=== PATIENT | female | born 1940 | race Caucasian/White ===

== ENCOUNTER 2019-11-27 01:38 | Inpatient (IN) ==
[2019-11-27] MEDS ORDERED: Naloxone 0.4 MG/ML INJ IVP PRN (03:17)
[2019-11-27] MEDS ORDERED: Ondansetron ODT 4 MG TAB.RAPDIS SL PRN (03:17)
[2019-11-27] MEDS ORDERED: DilTIAZem 50 MG in 0.9 % Sodium Chloride 40 ML IVC SCH (03:30)
[2019-11-27] MEDS ORDERED: Furosemide 40 MG/4 ML VIAL IVP ONE (04:31)
[2019-11-27 04:42] LABS: Hematocrit 36.3 % (35.3-44.9); Hemoglobin 11.4 g/dL (11.5-15.4); Mean Corpuscular HGB Conc 31.4 g/dL (31.6-35.5); Mean Corpuscular Hemoglobin 30.9 pg (28.0-33.3); Mean Corpuscular Volume 98.4 fL (83.0-100.0); Mean Platelet Volume 10.4 fL (9.4-12.4); Platelet Count 212 K/mcL (140-400); Red Blood Count 3.69 M/mcL (3.82-4.97); Red Cell Distribution Width 13.8 % (11.5-14.5); White Blood Count 8.2 K/mcL (4.3-11.1)
[2019-11-27 05:09] LABS: Calcium 9.5 mg/dL (8.6-10.3); Potassium 3.7 mEq/L (3.5-5.1)
[2019-11-27 05:39] LABS: Thyroid Stimulating Hormone 1.114 mcIU/mL (0.340-5.600)
[2019-11-27] MEDS ORDERED: Apixaban 5 MG TABLET PO SCH (11:30)
[2019-11-27] MEDS: Carbidopa/Levodopa 25/100 TABLET PO SCH ×3 (12:58→20:36)
[2019-11-27] MEDS: Apixaban 5 MG TABLET PO SCH ×2 (12:58→20:37)
[2019-11-27] MEDS: Acetaminophen 325 MG TABLET PO PRN ×2 (12:59→20:45)
[2019-11-27] MEDS ORDERED: NON-FORMULARY MEDICATION 1 EACH EACH (Acetaminophen [Tylenol Arthritis] 650 MG) PO SCH (15:00)
[2019-11-27] MEDS ORDERED: Furosemide 40 MG/4 ML VIAL IVP SCH (21:00)
[2019-11-28 03:56] LABS: Hematocrit 34.2 % (35.3-44.9); Hemoglobin 10.7 g/dL (11.5-15.4); Mean Corpuscular HGB Conc 31.3 g/dL (31.6-35.5); Mean Corpuscular Volume 95.8 fL (83.0-100.0); Mean Platelet Volume 10.8 fL (9.4-12.4); Platelet Count 204 K/mcL (140-400); Red Blood Count 3.57 M/mcL (3.82-4.97); Red Cell Distribution Width 13.9 % (11.5-14.5); White Blood Count 6.6 K/mcL (4.3-11.1)
[2019-11-28 04:42] LABS: Potassium 3.6 mEq/L (3.5-5.1)
[2019-11-28] MEDS ORDERED: Potassium Chloride Elixir 20 MEQ/15 ML UDC PO ONE (07:35)
[2019-11-28] MEDS: Apixaban 5 MG TABLET PO SCH ×2 (08:08→19:55)
[2019-11-28] MEDS: Carbidopa/Levodopa 25/100 TABLET PO SCH ×3 (08:08→19:55)
[2019-11-28] MEDS ORDERED: Furosemide 40 MG TABLET PO SCH (09:00)
[2019-11-29 01:49] LABS: Hematocrit 35.8 % (35.3-44.9); Mean Corpuscular HGB Conc 30.7 g/dL (31.6-35.5); Mean Corpuscular Hemoglobin 30.1 pg (28.0-33.3); Mean Corpuscular Volume 97.8 fL (83.0-100.0); Mean Platelet Volume 10.9 fL (9.4-12.4); Platelet Count 236 K/mcL (140-400); Red Blood Count 3.66 M/mcL (3.82-4.97); Red Cell Distribution Width 13.7 % (11.5-14.5); White Blood Count 7.6 K/mcL (4.3-11.1)
[2019-11-29 02:18] LABS: Calcium 9.1 mg/dL (8.6-10.3); Potassium 3.8 mEq/L (3.5-5.1)
[2019-11-29] MEDS: Carbidopa/Levodopa 25/100 TABLET PO SCH ×3 (10:05→20:36)
[2019-11-29] MEDS: Apixaban 5 MG TABLET PO SCH ×2 (10:05→20:36)
[2019-11-29] MEDS: Furosemide 40 MG TABLET PO SCH (10:05)
[2019-11-29] MEDS: Acetaminophen 325 MG TABLET PO PRN (10:26)
[2019-11-29] MEDS: DilTIAZem CD (24hr) 120 MG CAP.ER.24H PO SCH (11:20)
[2019-11-30] MEDS: Acetaminophen 325 MG TABLET PO PRN ×2 (00:42→11:36)
[2019-11-30 02:07] LABS: Hematocrit 36.7 % (35.3-44.9); Hemoglobin 11.6 g/dL (11.5-15.4); Mean Corpuscular HGB Conc 31.6 g/dL (31.6-35.5); Mean Corpuscular Hemoglobin 30.7 pg (28.0-33.3); Mean Corpuscular Volume 97.1 fL (83.0-100.0); Mean Platelet Volume 10.8 fL (9.4-12.4); Platelet Count 241 K/mcL (140-400); Red Blood Count 3.78 M/mcL (3.82-4.97); Red Cell Distribution Width 13.7 % (11.5-14.5); White Blood Count 7.6 K/mcL (4.3-11.1)
[2019-11-30 02:21] LABS: Calcium 9.1 mg/dL (8.6-10.3); Potassium 4.1 mEq/L (3.5-5.1)
[2019-11-30] MEDS ORDERED: Regadenoson 0.4 MG/5 ML SYRINGE IVP ONE (06:29)
[2019-11-30] MEDS: Carbidopa/Levodopa 25/100 TABLET PO SCH ×3 (11:37→21:24)
[2019-11-30] MEDS: DilTIAZem CD (24hr) 120 MG CAP.ER.24H PO SCH (11:37)
[2019-11-30] MEDS: Apixaban 5 MG TABLET PO SCH ×2 (11:37→21:24)
[2019-11-30] MEDS: Furosemide 40 MG TABLET PO SCH (12:23)
[2019-12-01] MEDS: Acetaminophen 325 MG TABLET PO PRN ×2 (05:48→20:59)
[2019-12-01 07:12] LABS: Hematocrit 36.4 % (35.3-44.9); Hemoglobin 11.3 g/dL (11.5-15.4); Mean Corpuscular Hemoglobin 30.6 pg (28.0-33.3); Mean Corpuscular Volume 98.6 fL (83.0-100.0); Mean Platelet Volume 10.8 fL (9.4-12.4); Platelet Count 243 K/mcL (140-400); Red Blood Count 3.69 M/mcL (3.82-4.97); Red Cell Distribution Width 13.6 % (11.5-14.5); White Blood Count 8.3 K/mcL (4.3-11.1)
[2019-12-01 07:31] LABS: Calcium 9.4 mg/dL (8.6-10.3); Potassium 4.1 mEq/L (3.5-5.1)
[2019-12-01] MEDS: DilTIAZem CD (24hr) 120 MG CAP.ER.24H PO SCH (08:55)
[2019-12-01] MEDS: Apixaban 5 MG TABLET PO SCH ×2 (08:55→20:52)
[2019-12-01] MEDS: Carbidopa/Levodopa 25/100 TABLET PO SCH ×3 (08:56→20:52)
[2019-12-01] MEDS: Furosemide 40 MG TABLET PO SCH (08:56)
[2019-12-01] MEDS: Loratadine 10 MG TABLET PO SCH (11:53)
[2019-12-01] MEDS ORDERED: Fluticasone Propionate Nasal 50 MCG/SPRAY BOTTLE NS SCH (21:00)
[2019-12-01] MEDS ORDERED: Menthol 9.1 MG LOZENGE PO PRN (22:17)
[2019-12-02] MEDS: Acetaminophen 325 MG TABLET PO PRN (04:41)
[2019-12-02] MEDS: Loratadine 10 MG TABLET PO SCH (11:06)
[2019-12-02] MEDS: Apixaban 5 MG TABLET PO SCH (11:07)
[2019-12-02] MEDS: DilTIAZem CD (24hr) 120 MG CAP.ER.24H PO SCH (11:07)
[2019-12-02] MEDS: Carbidopa/Levodopa 25/100 TABLET PO SCH (11:07)
[2019-12-02] MEDS: Furosemide 40 MG TABLET PO SCH (11:07)
[2019-12-02 11:19] VITALS: BP 152/64
== END 2019-12-02 15:13 | disposition home health service (06) | DRG 291 ==
LOC: 2NENU → SUATTDRO 01:38
PROVIDERS: ADMIT Family Medicine; ATTEND Internal Medicine